=== PATIENT | female | born 1970 | race Caucasian/White ===

== ENCOUNTER → 2017-09-11 | Outpatient (CLI) | payer BC ==
--- NOTE | 2017-09-11 18:09 | Diagnostic Imaging Report ---
CORRECTION Corrected on: 09/11/2017; Dictated by: Carlos Reyes M.D. on 09/11/2017 at 18:51 Electronically approved by: Carlos Reyes M.D. on 09/11/2017 at 18:51 PROCEDURE:US RETROPERITONEAL ( KIDNEY ). COMPARISON:[facility], CT, CT ABDOMEN/PELVIS WO, 05/18/2012, 6:47. INDICATIONS:RENAL COLIC, HYDRONEPHROSIS, CALCULUS OF URETER TECHNIQUE: Jurado-scale and color sonographic images of the bilateral kidneys and bladder where obtained in transverse and longitudinal planes. FINDINGS: RIGHT KIDNEY: 13.8 cm, cortex 1.3 cm Cysts: None Solid masses: None Stones: None Hydronephrosis: None Echogenicity: Normal LEFT KIDNEY: 11.4 cm, cortex 1.8 cm Cysts: None Solid masses: 1.1 x 0.7 x 1.0 cm echogenic non-shadowing cortical focus in the mid to inferior aspect, without significant vascularity Stones: None Hydronephrosis: Very mild left hydronephrosis. Echogenicity: Normal Bladder: No focal lesions. Incidental note is made of increased echogenicity of the visualized hepatic parenchyma, consistent with steatosis CONCLUSION: 1. Normal bilateral renal size, and echogenicity. 2. Very mild left hydronephrosis. 3. 1.1 cm echogenic non-shadowing cortical focus in the left kidney may represent a small angiomyolipoma versus invagination of perirenal fat in an renal cortical scar. This may be further evaluated with CT abdomen, if clinically indicated. No corresponding lesion was noted on prior CT abdomen and pelvis 05/18/2012 4. Hepatic steatosis. Carlos Reyes M.D. Dictated by: Carlos Reyes M.D. on 09/11/2017 at 18:14 Electronically approved by: Carlos Reyes M.D. on 09/11/2017 at 18:14
--- NOTE | 2017-09-11 18:50 | Diagnostic Imaging Report ---
PROCEDURE:X-RAY ABDOMEN - KUB COMPARISON:None. INDICATIONS:CALCULUS OF KIDNEY FINDINGS: Nonobstructed bowel gas pattern. No radiopaque densities project over the renal shadows, expected course of the ureters or bladder. Pelvic phleboliths. No acute bony abnormalities. CONCLUSION: No radiopaque densities project over the genitourinary tract.. Carlos Reyes M.D. Dictated by: Carlos Reyes M.D. on 09/11/2017 at 18:55 Electronically approved by: Carlos Reyes M.D. on 09/11/2017 at 18:55
== END ==
LOC: US 16:52
PROVIDERS: ATTEND Urology
DX: N20.1 Calculus of ureter (principal); N13.30 Unspecified hydronephrosis; N23 Unspecified renal colic; N13.4 Hydroureter
CPT/HCPCS: 74018; 76770